=== PATIENT | female | born 1930 | race Caucasian/White ===

== ENCOUNTER 2017-07-20 11:42 | Day surgery (SDC) | payer BC ==
[~2017-07-20] VITALS: Ht 160 cm; Wt 65.0 kg
[~2017-07-20 11:42] MED LIST: ALBUTEROL2.5 MG/3 M IH; AMIODARONE HCL200 MG PO; ASPIRIN81 M2 PO; CITALOPRAM HBR20 MG PO; FLEXERIL5 MG PO; HAIR SKIN NAIL1 EACH PO; LASIX40 MG PO; LEVOTHYROXINE75 MCG PO; METOPROLOL SUC100 MG PO; SIMVASTATIN10 MG PO; SYMBICORT60 INHALAT IH; WARFARIN SODIUM1 MG PO
== END 2017-07-20 15:45 | disposition home or self-care (01) ==
LOC: CATH 11:42
DX: Z45.010 Encounter for checking and testing of cardiac pacemaker pulse generator [battery] (principal); E78.5 Hyperlipidemia, unspecified; I48.1 Persistent atrial fibrillation; I10 Essential (primary) hypertension; I27.20 Pulmonary hypertension, unspecified; I49.5 Sick sinus syndrome
CPT/HCPCS: C2621; J0690; J1200; J2250; J3010; S0020